=== PATIENT | female | born 2000 | race African-American/Black ===

== ENCOUNTER 2021-11-05 02:29 | Emergency (ER) | payer OTHER ==
[~2021-11-05] VITALS: Ht 185.4 cm; Wt 59.0 kg
[2021-11-05 02:31] VITALS: BP 128/77
--- NOTE | 2021-11-05 02:31 | NUR ---
[facility]VAL[facility] CHP TAKEN TO CHAIR C
--- NOTE | 2021-11-05 03:00 | NUR ---
PATIENT BIB [facility] POLICE DEPT. PATIENT EXAMINED BY DR. OSUNA. PATIENT MEDICALLY CLEARED AND RELEASED IN CUSTODY IN STABLE CONDITION. ORIGINAL PRE-BOOK FORM GIVEN TO OFFICER LOU, #[id number].
== END 2021-11-05 03:00 ==
LOC: MED 02:29
DX: F10.129 Alcohol abuse with intoxication, unspecified (principal); V89.2XXA Person injured in unspecified motor-vehicle accident, traffic, initial encounter; Y93.89 Activity, other specified; Y92.89 Other specified places as the place of occurrence of the external cause; Y99.8 Other external cause status
CPT/HCPCS: 99283